=== PATIENT | male | born 1975 | race Caucasian/White ===

== ENCOUNTER 2017-03-27 07:11 | Emergency (ER) | payer OTHER ==
[~2017-03-27] VITALS: Ht 185.4 cm; Wt 88.0 kg
[2017-03-27 07:12] VITALS: BP 140/83; PULSE 67; RESP 13; TEMP 97.3; O2SAT 100
[2017-03-27] MEDS ORDERED: SODIUM CHLORIDE 0.9% FLUSH 10 ML FLUSH IV FLUSH PRN (07:45)
[2017-03-27] MEDS ORDERED: KETOROLAC TROMETHAMINE 30 MG/ML (IVP) VIAL IVP ONE (07:45)
[2017-03-27] MEDS ORDERED: ONDANSETRON HCL 4 MG/2 ML VIAL IVP ONE (07:45)
[2017-03-27 07:48] LABS: AUTOMATED NEUTROPHIL # 5.9 TH/MM3 (1.8-7.7); BASOPHIL % 0.5 % (0.0-2.0); EOSINOPHIL # 0.2 TH/MM3 (0-0.4); EOSINOPHIL % 2.6 % (0.0-4.0); HEMATOCRIT 43.3 % (39.0-51.0); HEMO FLAGS DIFF FINAL; LYMPH % 20.2 % (9.0-44.0); LYMPHOCYTE # 1.7 TH/MM3 (1.0-4.8); MEAN CORPUSCULAR HEMOGLOBIN 31.1 PG (27.0-34.0); MEAN CORPUSCULAR HGB CONC 34.1 % (32.0-36.0); MONO % 6.9 % (0.0-8.0); NEUT % 69.8 % (16.0-70.0); PLATELET COUNT 221 TH/MM3 (150-450); RED BLOOD COUNT 4.75 MIL/MM3 (4.50-5.90); RED CELL DISTRIBUTION WIDTH 12.3 % (11.6-17.2); WHITE BLOOD COUNT 8.4 TH/MM3 (4.0-11.0)
--- NOTE | 2017-03-27 07:49 | PD ---
HPI Chief Complaint: Flank/Kidney Pain Time Seen by Provider: 07:28 Travel History International Travel<30 days: No Contact w/Intl Traveler<30days: No Traveled to known affect area: No History of Present Illness HPI Patient is a 42-year-old male with a stated history of kidney stones presents to emergency department left lower quadrant abdominal pain for the past few days and gradually worsening. Patient states she's heard some "tinkling" in the toilet bowl and thinks it is passed a few kidney stones but feels that there is one in that he can't pass. States that he doesn't currently have a urologist. Denies any fever denies any blood in the urine denies any nausea or vomiting. Denies any changes in bowel habits. He states symptoms are gradually worsening and moderate in severity. PFSH Past Medical History Kidney Stones: Yes Medical other: Yes (spinal meningitis age 13) Influenza Vaccination: No Social History Alcohol Use: No Tobacco Use: Yes Substance Use: Yes (marijuana) Allergies-Medications (Allergen,Severity, Reaction): Coded Allergies: No Known Allergies (Unverified , 03/27/17) Reported Meds & Prescriptions Reported Meds & Active Scripts Active Ibuprofen 600 Mg Tab 600 Mg PO Q6H PRN Ciprofloxacin (Ciprofloxacin HCl) 500 Mg Tab 500 Mg PO BID 7 Days Review of Systems Except as stated in HPI: all other systems reviewed are Neg Physical Exam Narrative GENERAL: Well-developed well-nourished no apparent distress.] SKIN: Focused skin assessment warm/dry. HEAD: Atraumatic. Normocephalic. EYES: Pupils equal and round. No scleral icterus. No injection or drainage. ENT: No nasal bleeding or discharge. Mucous membranes pink and moist. NECK: Trachea midline. No JVD. CARDIOVASCULAR: Regular rate and rhythm. No murmur appreciated. RESPIRATORY: No accessory muscle use. Clear to auscultation. Breath sounds equal bilaterally. GASTROINTESTINAL: Abdomen soft, non-tender, nondistended. Hepatic and splenic margins not palpable. CVA tenderness, no rebound no percussive tenderness. GENITOURINARY: No hernia grossly normal scrotum and testes, circumcised penis without discharge. MUSCULOSKELETAL: No obvious deformities. No clubbing. No cyanosis. No edema. NEUROLOGICAL: Awake and alert. No obvious cranial nerve deficits. Motor grossly within normal limits. Normal speech. PSYCHIATRIC: Appropriate mood and affect; insight and judgment normal. Data Data Last Documented VS Vital Signs Date Time Temp Pulse Resp B/P Pulse Ox O2 Delivery O2 Flow Rate FiO2 03/27/17 07:53 98.4 60 13 119/83 98 Room Air Orders Basic Metabolic Panel (Bmp) (03/27/17 07:34) Complete Blood Count With Diff (03/27/17 07:34) Urinalysis - C+S If Indicated (03/27/17 07:34) Ct Abd/Pel W/O Iv Contrast (03/27/17 07:34) Iv Access Insert/Monitor (03/27/17 07:34) Ecg Monitoring (03/27/17 07:34) Oximetry (03/27/17 07:34) Ondansetron Inj (Zofran Inj) (03/27/17 07:45) Sodium Chloride 0.9% Flush (Ns Flush) (03/27/17 07:45) Ketorolac Inj (Toradol Inj) (03/27/17 07:45) Cath For Specimen (03/27/17 09:08) Urine Culture (03/27/17 09:25) Labs Laboratory Tests Test 03/27/17 03/27/17 07:35 09:25 White Blood Count 8.4 TH/MM3 Red Blood Count 4.75 MIL/MM3 Hemoglobin 14.8 GM/DL Hematocrit 43.3 % Mean Corpuscular Volume 91.0 FL Mean Corpuscular Hemoglobin 31.1 PG Mean Corpuscular Hemoglobin 34.1 % Concent Red Cell Distribution Width 12.3 % Platelet Count 221 TH/MM3 Mean Platelet Volume 9.0 FL Neutrophils (%) (Auto) 69.8 % Lymphocytes (%) (Auto) 20.2 % Monocytes (%) (Auto) 6.9 % Eosinophils (%) (Auto) 2.6 % Basophils (%) (Auto) 0.5 % Neutrophils # (Auto) 5.9 TH/MM3 Lymphocytes # (Auto) 1.7 TH/MM3 Monocytes # (Auto) 0.6 TH/MM3 Eosinophils # (Auto) 0.2 TH/MM3 Basophils # (Auto) 0.0 TH/MM3 CBC Comment DIFF FINAL Differential Comment Sodium Level 142 MEQ/L Potassium Level 4.1 MEQ/L Chloride Level 108 MEQ/L Carbon Dioxide Level 30.6 MEQ/L Anion Gap 3 MEQ/L Blood Urea Nitrogen 11 MG/DL Creatinine 0.97 MG/DL Estimat Glomerular Filtration 85 ML/MIN Rate Random Glucose 104 MG/DL Calcium Level 8.4 MG/DL Urine Color YELLOW Urine Turbidity CLOUDY Urine pH 7.0 Urine Specific [place] 1.022 Urine Protein TRACE mg/dL Urine Glucose (UA) NEG mg/dL Urine Ketones NEG mg/dL Urine Occult Blood NEG Urine Nitrite NEG Urine Bilirubin NEG Urine Urobilinogen LESS THAN 2.0 MG/DL Urine Leukocyte Esterase LARGE Urine RBC 12 /hpf Urine WBC 136 /hpf Urine Amorphous Sediment FEW Urine Bacteria OCC /hpf Urine Mucus FEW /lpf Microscopic Urinalysis Comment CULTURE INDICATED MDM Medical Decision Making Medical Screen Exam Complete: Yes Emergency Medical Condition: Yes Differential Diagnosis Kidney stone, colitis, constipation, urinary tract infection, prostatitis. Narrative Course Patient roomed emerged permit, appears quite comfortable and in no obvious distress. He was given Toradol, he states this did not touch his pain. Again the patient is not having any tachycardia resting comfortably legs crossed and I do not believe there is any indication for more aggressive pain management. His CAT scan shows no obvious evidence of kidney stone, there is evidence of urinary tract infection on UA, exam was then performed and the patient doesn' t have any evidence of STDs, no hernias. Recommended the patient also have a prostate exam and he declines this at this time. Discussed need for follow-up with his urologist once he gets back to [place] discussed return to ED criteria and symptomatic management home. Diagnosis Primary Impression: UTI (urinary tract infection) Qualified Code: N30.01 - Acute cystitis with hematuria Additional Instructions: Follow-up with urologist when you back to [place]. Med/Other Pt SpecificInfo: Prescription(s) given Scripts Ibuprofen 600 Mg [id number] Mg PO Q6H PRN (Pain/Inflammation) #20 TAB Ref 0 Prov:Brandon Reed MD 03/27/17 Ciprofloxacin 500 Mg [id number] Mg PO BID 7 Days Ref 0 Prov:Brandon Reed MD 03/27/17 Disposition: 01 DISCHARGE HOME Condition: Stable Brandon Reed MD Mar 27, 2017 07:49
[2017-03-27 07:52] VITALS: O2SAT 98
[2017-03-27 07:53] VITALS: BP 119/83; PULSE 60; RESP 13; TEMP 98.4; O2SAT 98
[2017-03-27 08:02] LABS: BICARBONATE 30.6 MEQ/L (21.0-32.0); POTASSIUM 4.1 MEQ/L (3.5-5.1)
--- NOTE | 2017-03-27 09:12 | RADRPT ---
EXAM DATE/TIME: 03/27/2017 08:21 [facility] COMPARISON: No previous studies available for comparison. INDICATIONS : Left flank pain ORAL CONTRAST: No oral contrast ingested. RADIATION DOSE: 7.63 CTDIvol (mGy) MEDICAL HISTORY : Renal calculi. SURGICAL HISTORY : None. ENCOUNTER: Initial ACUITY: 1 day PAIN SCALE: 6/10 LOCATION: Left flank TECHNIQUE: Volumetric scanning of the abdomen and pelvis was performed. Using automated exposure control and ad justment of the mA and/or kV according to patient size, radiation dose was kept as low as reasonably achievable to obtain optimal diagnostic quality images. FINDINGS: LOWER LUNGS: The visualized lower lungs are clear. LIVER: Mild hepatomegaly is noted. Homogeneous density without lesion. There is no dilation of the biliary tree. No calcified gallstones. SPLEEN: Scattered punctate calcifications are noted indicating granulomatous changes within the spleen. PANCREAS: Within normal limits. KIDNEYS: Normal in size and shape. There is no mass, stone, or hydronephrosis. ADRENAL GLANDS: Within normal limits. VASCULAR: There is no aortic aneurysm. BOWEL/MESENTERY: The stomach, small bowel, and colon demonstrate no acute abnormality. There is no free intraperitone al air or fluid. ABDOMINAL WALL: Within normal limits. RETROPERITONEUM: There is no lymphadenopathy. BLADDER: No wall thickening or mass. REPRODUCTIVE: The prostate gland is mildly prominent. INGUINAL: There is no lymphadenopathy or hernia. MUSCULOSKELETAL: Degenerative changes are noted within the lower lumbar spine. CONCLUSION: 1. No acute obstructive uropathy. 2. Mild hepatomegaly. 3. Enlarged prostate. 4. Degenerative changes within the lower lumbar spine. Brandon Boyd MD on March 27, 2017 at 9:07 Board Certified Radiologist. This report was verified electronically.
[2017-03-27 09:52] LABS: BACTERIA, URINE OCC /hpf; BLOOD, URINE NEG (NEG); COMMENT (UR) CULTURE INDICATED; CULTURE IF INDICATED CULTURE INDICATED; GLUCOSE,URINE NEG (NEG); KETONE, URINE NEG (NEG); MUCUS URINE FEW /lpf (OCC); NITRITE,URINE NEG (NEG); URINE COLOR YELLOW (YELLW/STRAW)
[2017-03-27] MEDS ORDERED: CIPR500T2 PO (10:12)
[2017-03-27] MEDS ORDERED: IBUP-232 PO (10:13)
== END 2017-03-27 10:53 | disposition home or self-care (01) ==
LOC: NEPC 07:11
DX: N30.01 Acute cystitis with hematuria (principal); B96.89 Other specified bacterial agents as the cause of diseases classified elsewhere
CPT/HCPCS: 74176; 80048; 81001; 85025; 87086; 96374; 96375; 99285; J1885; J2405